=== PATIENT | male | born 1960 | race Caucasian/White ===

== ENCOUNTER 2016-12-17 10:32 | Emergency (ER) | payer MEDICARE, OTHER ==
[2016-12-17 13:33] LABS: BASOPHIL 0.3 % (0-2); EOSINOPHIL 0 % (0-5); HCT 48.2 % (42.0-52.0); HGB 16.5 g/dl (13.2-18.0); LYMPHOCYTE 7.7 % (15-48); MCH 31.9 pg (25.0-31.0); MCHC 34.2 g/dL (32.0-36.0); MCV 93.1 fL (78.0-100.0); MONOCYTE 14.3 % (0-12); MPV 11.3 fL (6.0-9.5); NEUTROPHIL 77.7 % (41-80); PLT 126 K/uL (150-400); RBC 5.18 M/uL (4.70-6.00); RDW 15.5 % (11.5-14.0); WBC 10.5 K/uL (4.0-10.5)
[2016-12-17 14:15] LABS: ALBUMIN 3.8 g/dL (3.5-5.0); BILIRUBIN - TOTAL 0.9 mg/dL (0.1-1.0); CREATININE 4.5 mg/dL (0.7-1.2); GLOBULIN (CALCULATION) 2.7 g/dL (2.2-4.2); LACTIC ACID 7.4 mmol/L (0.5-2.2); TOTAL PROTEIN 6.5 g/dL (6.4-8.3)
[2016-12-17 16:25] LABS: BILIRUBIN 2+ mg/dL (NEGATIVE); BLOOD NEGATIVE Ery/uL (NEGATIVE); CLARITY CLEAR (CLEAR); COLOR YELLOW (YELLOW); GLUCOSE (U) TRACE mg/dL (NORMAL); KETONE (U) NEGATIVE (NEGATIVE); LEUKOCYTES NEGATIVE Leu/uL (NEGATIVE); NITRITE POSITIVE (NEGATIVE); PROTEIN 1+ mg/dL (NEGATIVE); SPECIFIC GRAVITY 1.025 (1.001-1.030)
[2016-12-17 16:29] LABS: URINARY WBC RARE
[2016-12-17 16:30] LABS: AMORPHOUS URATES CRYSTALS MODERATE; BACTERIA 2+; SQUAMOUS EPITHELIAL CELLS RARE
== END 2016-12-17 19:08 | disposition other institution (70) ==
LOC: FER 10:32
PROVIDERS: Internal Medicine
DX: A41.9 Sepsis, unspecified organism (principal); R65.20 Severe sepsis without septic shock; N17.9 Acute kidney failure, unspecified; E87.0 Hyperosmolality and hypernatremia; E87.5 Hyperkalemia; I95.9 Hypotension, unspecified; I21.4 Non-ST elevation (NSTEMI) myocardial infarction
CPT/HCPCS: 36415; 36600; 70450; 71010; 80053; 81001; 82550; 82803; 83605; 83690; 84484; 85025; 87040; 93005; 96372; 96374; J0610